=== PATIENT | female | born 1955 | race Caucasian/White ===

== ENCOUNTER → 2016-09-20 | Outpatient (CLI) | payer OTHER ==
[2016-09-20 13:20] LABS: EKG EKG PERFORMED
[2016-09-20 14:11] LABS: Basophils # (A) 0.1 k/uL (0-0.2); Basophils % (A) 1 %; CHCM 31.2; Eosinophils # (A) 0.2 k/uL (0-0.7); Eosinophils % (A) 2 %; HCT 41.1 % (34.0-46.0); HDW 2.55; HGB 13.5 gm/dL (11.4-16.0); Hypochromasia Slight; Luc # (Auto) 0.13; Luc % (Auto) 1; Lymphocytes # (A) 3.6 k/uL (1.0-4.8); Lymphocytes % (A) 32 %; MCH 31.7 pg (25.0-35.0); MCHC 32.8 g/dL (31.0-37.0); MCV 96.6 fL (80.0-100.0); Mean Platelet Volume 7.7; Monocytes # (A) 0.4 k/uL (0-1.0); Monocytes % (A) 4 %; Neutrophils # (A) 6.8 k/uL (1.3-7.7); Neutrophils % (A) 60 %; RBC 4.25 m/uL (3.80-5.40); RDW 12.9 % (11.5-15.5); WBC 11.2 k/uL (3.8-10.6); WBC (Perox) 11.72
[2016-09-20 14:19] LABS: INR 0.9 (<1.1); Partial Thromboplastin Time 22.5 sec (22.0-30.0); Prothrombin Time 9.7 sec (9.0-12.0)
[2016-09-20 14:33] LABS: Appearance,Urine Cloudy (Clear); Bacteria,Urine Moderate /hpf; Bilirubin,Urine Negative (Negative); Glucose,Urine (UA) Negative (Negative); Ketones,Urine Negative (Negative); Leukocyte Esterase,Urine Large (Negative); Mucus,Urine Rare /hpf; Nitrite,Urine Positive (Negative); PH, Urine 5.5 (5.0-8.0); Particle Count 31676; Protein,Urine 1+ (Negative); RBC,Urine 3 /hpf (0-5); Squamous Epithelial Cell,Urine 3 /hpf (0-4); UA Billing (MACRO vs. MICRO) MICRO; Urobilinogen,Urine <2.0 mg/dL (<2.0); WBC,Urine 40 /hpf (0-5)
[2016-09-20 14:53] LABS: ALT 26 U/L (9-52); AST 20 U/L (14-36); Alkaline Phosphatase 103 U/L (38-126); Anion Gap 13 mmol/L; Blood Urea Nitrogen 25 mg/dL (7-17); Carbon Dioxide 26 mmol/L (22-30); Chloride 104 mmol/L (98-107); Glucose 72 mg/dL (74-99); Non-African American GFR(MDRD) >60 (>60 ml/min/1.73 sqM); Potassium 5.1 mmol/L (3.5-5.1); Sodium 143 mmol/L (137-145); Total Bilirubin 0.4 mg/dL (0.2-1.3); Total Protein 7.1 g/dL (6.3-8.2)
== END | disposition home or self-care (01) ==
LOC: LABPAT 12:42
PROVIDERS: ATTEND Orthopaedic Surgery
DX: Z01.810 Encounter for preprocedural cardiovascular examination (principal); Z01.812 Encounter for preprocedural laboratory examination
CPT/HCPCS: 80053; 81001; 85025; 85610; 85730; 87070; 93005

== ENCOUNTER 2016-10-03 10:14 | Inpatient (IN) | payer OTHER ==
[~2016-10-03 10:14] MED LIST: ACETAMINOPHEN TAB 500 MG TAB PO ONE; DEXAMETHASONE SOD PHOSPHATE 10 MG/ML 1 ML VIAL IV ONE; LIDOCAINE 1% 20 ML VIAL (10MG/ML) FOR IV START INTRADERMA PRN; MELOXICAM 7.5 MG TAB PO ONE; MIDAZOLAM 2 MG/2 ML VIAL IV PRN; ONDANSETRON 4 MG/2 ML VIAL IVP ONE; ROPIVACAINE 246.25 MG, EPINEPHrine 0.5 MG, KETOROLAC 30 MG, cloNIDine HCL/PF 80 MCG, WA... MISCELLANE ONE; SCOPOLAMINE 1.5MG/72HR PATCH TRANSDERM ONE; TRANEXAMIC ACID 1,000 MG in SODIUM CHLORIDE 0.9% 100 ML IVPB ONE; ceFAZolin 2 GM in SODIUM CHLORIDE 0.9% 100 ML IVPB ONE
[2016-10-03 14:19] LABS: Glucose,Whole Blood 95 mg/dL (75-99)
[2016-10-03] MEDS: LACTATED RINGERS 1,000 ML IV SCH ×2 (14:32→23:18)
[2016-10-03] MEDS ORDERED: HYDROcodone/APAP 5-325MG 1 EACH TAB PO PRN (16:26)
[2016-10-03] MEDS ORDERED: DIAZEPAM 5 MG TAB PO PRN ×2 (16:26)
[2016-10-03] MEDS ORDERED: MAGNESIUM HYDROXIDE 2,400 MG/10 ML CUP PO PRN (16:26)
[2016-10-03] MEDS ORDERED: NALOXONE 0.4 MG/ML 1 ML VIAL IV PRN (16:26)
[2016-10-03] MEDS ORDERED: ONDANSETRON 4 MG/2 ML VIAL IVP PRN (16:26)
[2016-10-03] MEDS ORDERED: HYDROmorphone 1 MG/ML 1 ML SYRINGE IVP PRN ×3 (16:26)
[2016-10-03] MEDS ORDERED: BISACODYL 10 MG SUPP RECTAL PRN (16:26)
[2016-10-03] MEDS ORDERED: fentaNYL (PF) 50 MCG/ML 2 ML AMP ONE (18:17)
[2016-10-03] MEDS ORDERED: PROPOFOL 10 MG/ML 20 ML VIAL IV ONE (18:17)
[2016-10-03] MEDS ORDERED: SODIUM CHLORIDE 0.9% 100 ML BAG ONE (18:17)
[2016-10-03] MEDS ORDERED: SUCCINYLCHOLINE CHLORIDE 100 MG/5 ML SYR IV ONE (18:17)
[2016-10-03] MEDS ORDERED: MIDAZOLAM 2 MG/2 ML VIAL ONE (18:17)
[2016-10-03] MEDS ORDERED: TRANEXAMIC ACID 1,000 MG/10 ML VIAL ONE (18:17)
[2016-10-03] MEDS ORDERED: HYDROmorphone (PF) 1 MG/ML ONE (18:17)
[2016-10-03] MEDS ORDERED: LIDOCAINE 1% INJ 10MG/ML (20 ML MDV) ONE (18:17)
[2016-10-03] MEDS ORDERED: LACTATED RINGERS 1,000 ML IV ONE ×2 (19:20)
[2016-10-03] MEDS ORDERED: ceFAZolin 3,000 MG in SODIUM CHLORIDE 0.9% IRRIGATIO 3,000 ML IRRIGATION ONE (19:21)
--- NOTE | 2016-10-03 19:45 | P.OP ---
Date of Procedure: 10/03/16 Preoperative Diagnosis: Severe osteoarthritis the left knee Postoperative Diagnosis: Severe osteoarthritis of left knee Procedure(s) Performed: Left total knee arthroplasty Implants: Salazar and Nephew Oxinium femoral component size 4, left Salazar & Nephew Abbi II left nonporous tibial baseplate size 3 Salazar & Nephew size 9 mm Legion XLPE dished articular insert, size 3-4 Salazar & Nephew Abbi II resurfacing patellar component, 32 mm All components were cemented using Esteban bone cement.. The articulation is ceramic on polyethylene. Anesthesia: GETA (Spinal anesthetic was attempted, but unsuccessful) Surgeon: Imer Castillo Coal Hauler #1: Keisha Lyles Pathology: other (Bone and cartilage) Condition: stable Disposition: PACU Indications for Procedure: After failure of conservative treatment we discussed the surgical and nonsurgical treatment options at length. Patient wishes to proceed with a total knee arthroplasty. Complications specific to this procedure were discussed at length, including but not limited to infection, bleeding, stiffness , and nerve injury. Patient is aware of all these complications and informed consent was obtained Operative Findings: The operative findings are consistent with severe osteoarthritis of the left knee Description of Procedure: Patient was seen in the preoperative area consent was reviewed and operative site was marked with a skin marker. Patient was then brought to the operating room and given preoperative antibiotics intravenously. A general anesthetic was administered by the anesthesia department. A Hunter catheter was then placed by the nursing staff. A tourniquet was placed on the upper thigh and the lower extremity was prepped and draped in usual sterile fashion. A gram of transexamic acid was given. A universal timeout was then performed which confirmed the patient's name, surgical site, ALLERGIES, and consent. The lower extremity was then exsanguinated and tourniquet was inflated to 350 mmHg. A standard and anterior midline approach to the knee was performed. The skin and subcutaneous tissue was dissected down to the patellar tendon. A medial parapatellar arthrotomy was then performed. The knee was then extended, the patellar was everted, and the knee was again flexed. Anterior horns of both menisci were excised, and a release was performed to the posterior medial aspect of the knee. On gross visual inspection, there was complete loss of articular cartilage in the medial and patellofemoral joint spaces. There was also significant cartilage damage in the lateral compartment. There were multiple periarticular osteophytes which were then removed with a Ronguer. The femoral canal was then opened with the appropriate drill, and the intramedullary femoral cutting guide was then placed and set for 4 of valgus. The distal femoral cutting block was then pinned in place, and the distal femur was then cut. The cutting block was then removed and the cut was checked for flatness. Next, the sizing guide was then placed and set for 3 external rotation based off of the epicondylar axis and Whitesides line. After the femur was sized, the appropriate 4-in-1 cutting block was then pinned in place. The anterior condyles were cut without notching. The posterior and chamfer cuts were performed while protecting the collateral ligaments. The cutting block was then removed, and the femoral canal was plugged with autologous bone. Attention was then directed to the tibia. The remaining ACL was removed with a Ronguer, and the tibia was then gently subluxed forward with a large bent knee retractor. Any remaining menisci was excised. The posterior lateral corner was cauterized in order to cauterize the lateral geniculate artery. The extra medullary tibial cutting guide was then placed, set for the appropriate rotation , slope, and depth of resection. The proximal tibia cutting guide was then pinned in place. Proximal tibia was then cut and sized. Next trials were then placed with the appropriate-sized insert. The knee was able to fully extend and flex to 130 and was stable throughout all range of motion. The knee was then extended, patella everted. Patella was then measured, and then using an osteotomy guide, the patella was cut at the appropriate level. The patella was then measured and drilled and the patella trial was then placed. The knee was then taken through range of motion with the patella trial and the patella tracked normally. The knee was then extended patella trial was then removed and the patella was everted. Knee was then flexed and lug holes were drilled through the femoral trial and the femoral trial was then removed. The tibial was then exposed, and the tibial broach guide was then pinned in place after it was set for the appropriate rotation to allow for the most coverage without overhang. The tibia was then broached. The cut surfaces of bone were then irrigated with pulsatile lavage. The posterior structures were injected with the ropivacaine solution. The components were then opened, the cement was mixed, and the components were then cemented in place. The cement was allowed to harden with the knee in full extension. While the cement was hardening, the remaining soft tissues were injected with the ropivacaine solution. After the cemented hardened. The tourniquet was released, and hemostasis was obtained. A second gram of transexamic acid was given. The knee was again irrigated. The knee was again taken through range of motion and found to be stable throughout all range of motion of 0-130, and the patella tracked normally. The fascia was then closed with #2 strata fix suture. The subcutaneous tissue was closed with 3-0 Vicryl and 3-0 strata fix. Dermabond tape was used for the skin, and the patient was placed in a sterile dressing. Patient was then transferred to recovery room in stable condition. The assistant manager quality management TYRELL Carter was required due the complexity surgery and the need for a skilled surgical tech. She assisted in positioning, draping , retraction, and closure of the wound.
[2016-10-03 20:23] VITALS: RESP 16
--- NOTE | 2016-10-03 20:25 | XR ---
EXAMINATION TYPE: XR knee limited LT DATE OF EXAM: 10/03/2016 8:22 PM COMPARISON: NONE HISTORY: Postop knee surgery TECHNIQUE: 2 views FINDINGS: There is a left total knee prosthesis. Components are in anatomic position. IMPRESSION: Prosthesis without evidence of a complicating process.
[2016-10-03 20:30] LABS: Glucose,Whole Blood 205 mg/dL (75-99)
[2016-10-03] MEDS: HYDROmorphone 1 MG/ML 1 ML SYRINGE IVP PRN ×2 (20:30→20:40)
[2016-10-03] MEDS: LABETALOL 5 MG/ML VIAL MDV IVP ONE ×2 (20:47→20:57)
[2016-10-03] MEDS ORDERED: METOCLOPRAMIDE 5 MG/ML 2 ML VIAL IVP ONE (20:53)
[2016-10-03] MEDS: SODIUM CHLORIDE 0.9% 1,000 ML IV SCH ×3 (20:57→23:20)
[2016-10-03] MEDS ORDERED: SENNOSIDES-DOCUSATE SODIUM 1 EACH TAB PO SCH (21:00)
[2016-10-03 21:33] VITALS: BMI 49.1
[2016-10-03 21:52] LABS: Glucose,Whole Blood 226 mg/dL (75-99)
[2016-10-03] MEDS ORDERED: INSULIN LISPRO (humaLOG) 300 UNIT/3 ML VIAL SQ ONE (22:38)
[2016-10-03] MEDS: ceFAZolin 2 GM in SODIUM CHLORIDE 0.9% 100 ML IVPB SCH (23:17)
[2016-10-03] MEDS: ASPIRIN 325 MG TAB PO SCH (23:17)
[2016-10-04] MEDS: hydrOXYzine PAMOATE 25 MG CAP PO PRN ×2 (04:43→10:38)
[2016-10-04] MEDS: HYDROcodone/APAP 5-325MG 1 EACH TAB PO PRN ×2 (04:44→10:38)
[2016-10-04] MEDS: ASPIRIN 325 MG TAB PO SCH (07:56)
[2016-10-04] MEDS: glipiZIDE 10 MG TAB PO SCH ×2 (07:56→17:36)
[2016-10-04] MEDS: metFORMIN 500 MG TAB PO SCH ×2 (07:56→17:36)
[2016-10-04] MEDS: ceFAZolin 2 GM in SODIUM CHLORIDE 0.9% 100 ML IVPB SCH (07:57)
[2016-10-04 07:59] LABS: Glucose,Whole Blood 205 mg/dL (75-99)
[2016-10-04] MEDS: INSULIN LISPRO (humaLOG) 300 UNIT/3 ML VIAL SQ SCH ×3 (08:02→17:20)
[2016-10-04 08:44] LABS: Basophils % (A) 0 %; CH 30.5; CHCM 32.2; Eosinophils % (A) 0 %; HCT 34.1 % (34.0-46.0); HDW 2.44; HGB 10.8 gm/dL (11.4-16.0); Luc # (Auto) 0.08; Luc % (Auto) 1; Lymphocytes # (A) 2.2 k/uL (1.0-4.8); Lymphocytes % (A) 18 %; MCH 30.1 pg (25.0-35.0); MCHC 31.6 g/dL (31.0-37.0); MCV 95.2 fL (80.0-100.0); Mean Platelet Volume 7.6; Monocytes # (A) 0.5 k/uL (0-1.0); Monocytes % (A) 4 %; Neutrophils # (A) 9.2 k/uL (1.3-7.7); Neutrophils % (A) 76 %; RBC 3.58 m/uL (3.80-5.40); RDW 13.2 % (11.5-15.5); WBC 12.1 k/uL (3.8-10.6); WBC (Perox) 12.48
[2016-10-04] MEDS ORDERED: OXYBUTYNIN CHLORIDE 5 MG TAB PO SCH (09:00)
[2016-10-04] MEDS ORDERED: MELOXICAM 7.5 MG TAB PO SCH (09:00)
[2016-10-04] MEDS ORDERED: MULTIVITAMINS, THERA 1 EACH TAB PO SCH (09:00)
[2016-10-04] MEDS ORDERED: LISINOPRIL 10 MG TAB PO SCH (09:00)
--- NOTE | 2016-10-04 09:18 | P.DS ---
Providers Date of admission: 10/03/16 13:28 Expected date of discharge: 10/04/16 Attending physician: Imer Castillo Consults: 10/03/16 22:13 Consult Physician Routine Consulting Provider: Mann Briones Consult Reason/Comments: medical management Do you want consulting provider notified?: Yes, Notify in am Primary care physician: Chris Santillan - Discharge Diagnosis(es) (1) Primary osteoarthritis of left knee Current Visit: Yes Status: Acute (2) Status post left knee replacement Current Visit: Yes Status: Acute Hospital Course: This is a pleasant 61-year-old female last seen in our office with complaints of left knee pain. Patient has known history of degenerative arthritis of the left knee and presented to discuss options. After discussion and consideration , the patient elected to proceed with a left total knee arthroplasty. Patient was seen preoperatively, and medically cleared for surgery by her primary care physician. Patient was admitted to [facility] and underwent left total knee arthroplasty with Dr. Imer Castillo. The procedure was performed without complications or sequelae. The patient is seen and evaluated at bedside today. Pain is well-controlled. Patient has no new complaints today and denies any fevers, chills, nausea, vomiting, or shortness of breath. Vital signs are stable. Dressing is clean dry and intact. Incision looks fine with no erythema or active drainage. There is scant amount of bloody drainage on the dressing. She is able to perform active flexion at the knee. Calf is soft and nontender. Patient has full foot and ankle motion without difficulty. Patient' s left lower extremity is neurovascularly intact. The patient is orthopedically stable for discharge today. Pertinent Studies: Laboratory Tests 10/04/16 07:13 WBC 12.1 H RBC 3.58 L Hgb 10.8 L Hct 34.1 MCV 95.2 MCH 30.1 MCHC 31.6 RDW 13.2 Plt Count 267 Neutrophils % 76 Lymphocytes % 18 Monocytes % 4 Eosinophils % 0 Basophils % 0 Neutrophils # 9.2 H Lymphocytes # 2.2 Monocytes # 0.5 Eosinophils # 0.0 Basophils # 0.0 Patient Condition at Discharge: Good Plan - Discharge Summary New Discharge Prescriptions: Aspirin 325 mg PO BID #60 tab Hydrocodone/Acetaminophen [Manito 5-325] 1 - 2 each PO Q6HR PRN #90 tab PRN Reason: Pain Sennosides-Docusate Sodium [Senokot-S] 2 tab PO DAILY #60 tablet Discharge Medication List Aspirin [Adult Low Dose Aspirin EC] 81 mg PO DAILY 09/22/16 [History] Lisinopril [Zestril] 10 mg PO QAM 09/22/16 [History] Multivitamins, Thera [Multivitamin] 1 tab PO DAILY 09/22/16 [History] Oxybutynin Chloride [Ditropan] 5 mg PO BID 09/22/16 [History] glipiZIDE [Glucotrol] 20 mg PO BID 09/22/16 [History] metFORMIN HCL 1,000 mg PO BID 09/22/16 [History] Aspirin 325 mg PO BID #60 tab 10/04/16 [Rx] Hydrocodone/Acetaminophen [Manito 5-325] 1 - 2 each PO Q6HR PRN #90 tab 10/04/16 [Rx] Sennosides-Docusate Sodium [Senokot-S] 2 tab PO DAILY #60 tablet 10/04/16 [Rx] Follow up Appointment(s)/Referral(s): Imer Castillo DO [Doctor of Osteopathic Medicine] - 2 Weeks Ambulatory/Diagnostic Orders: Continuous Passive Motion (CPM) Machine [DME.AMB1] Location: Determined By Patient Activity/Diet/Wound Care/Special Instructions: Weightbearing as tolerated with a walker CPM daily Daily dressing changes, keep incision clean and dry [facility] with questions or concerns [phone] Discharge Disposition: HOME WITH HOME HEALTH SERVICES
[2016-10-04 12:03] LABS: Glucose,Whole Blood 165 mg/dL (75-99)
[2016-10-04 14:58] LABS: Hemoglobin A1C 6.5 % (4.2-6.1)
[2016-10-04 15:22] VITALS: BP 104/52; PULSE 79; TEMP 97.7
[2016-10-04] MEDS ORDERED: HYDROcodone/APAP 7.5-325MG 1 EACH TAB PO PRN (16:07)
[2016-10-04 16:55] LABS: Glucose,Whole Blood 100 mg/dL (75-99)
== END 2016-10-04 19:04 | disposition home health service (06) | DRG 470 ==
LOC: 2ORMAIN 13:28 → 3SUR 20:51
PROVIDERS: ADMIT Orthopaedic Surgery; ATTEND Orthopaedic Surgery
PROC: 0SRD0J9 Replacement of Left Knee Joint with Synthetic Substitute, Cemented, Open Approach (ICD-10-PCS; principal; 2016-10-03 17:25)
DX: M17.12 Unilateral primary osteoarthritis, left knee (principal); I10 Essential (primary) hypertension; E11.9 Type 2 diabetes mellitus without complications; Z79.1 Long term (current) use of non-steroidal anti-inflammatories (NSAID); Z79.84 Long term (current) use of oral hypoglycemic drugs; Z79.899 Other long term (current) drug therapy; Z88.6 Allergy status to analgesic agent
CPT/HCPCS: 83036; 84132; 85025; 88300

== ENCOUNTER → 2024-04-01 | Outpatient (CLI) | payer MEDICARE, OTHER ==
--- NOTE | 2024-04-29 12:50 | US ---
Patient: Mila Saravia Ordering Physician: Unknown, Unknown ID: [id number] Phone, Pager: Phone: N/ A Pager: N/A : 1955 Age/Gender: 68Y, O Primary Location: N/A Procedure: US arterial LE single level Study Date: 04/01/2024 1:47:00 PM EXAMINATION TYPE: US arterial LE single level DATE OF EXAM: 04/20/2024 9:46 PM CLINICAL INDICATION: Nonhealing diabetic wound. History of: Diabetes, hypertension, skin color change. Doppler Waveforms: Right: Monophasic Left: Monophasic Right Brachial Pressure: 165 Left Brachial Pressure: And 74 Ankle-Brachial Indices: Right: Not able to compress. Left: Not able to compress. (Vessel hardening > 1.4; Normal 0.9 - 1.4, Moderate 0.7 - 0.9, Severe 0.5-0.7) Toe Brachial Indices: Right: Not able to compress. Left: Not able to compress. IMPRESSION: Noncompressible vessels. No ankle-brachial indices recorded. Monophasic waveforms suggestive peripher al vascular disease bilaterally.
--- NOTE | 2024-04-29 12:50 | US ---
Patient: Mila Saravia Ordering Physician: Unknown, Unknown ID: [id number] Phone, Pager: Phone: N/ A Pager: N/A : 1955 Age/Gender: 68Y, F Primary Location: N/A Procedure: US venous doppler dup mychal LE BI Study Date: 04/01/2024 1:24:00 PM EXAMINATION TYPE: US venous doppler duplex LE BI DATE OF EXAM: 04/19/2024 3:43 PM COMPARISON: NONE CLINICAL INDICATION: VENOUS INSUFFICIENCY study Nonhealing wound, diabetic SIDE PERFORMED: Bilateral TECHNIQUE: The lower extremity deep venous system is examined utilizing real time linear array sonog can with graded compression, doppler sonography and color-flow sonography. VESSELS IMAGED: Common Femoral Vein Deep Femoral Vein Greater Saphenous Vein * Femoral Vein Popliteal Vein Small Saphenous Vein * Proximal Calf Veins (* superficial vessels) Right Leg: Negative for DVT Left Leg: Negative for DVT No reflux seen bilaterally and appears negative for DVT Grayscale, color doppler, spectral doppler imaging performed of the deep veins of the lower extremiti es. There is normal flow, compressibility, vascular waveforms. IMPRESSION: 1. No evidence for deep vein thrombosis of the bilateral lower externally. 2. No evidence for venous insufficiency.
== END | disposition home or self-care (01) ==
LOC: RADUSWWP 13:06
PROVIDERS: ATTEND Thoracic Surgery (Cardiothoracic Vascular Surgery)
DX: L97.825 Non-pressure chronic ulcer of other part of left lower leg with muscle involvement without evidence of necrosis (principal); I10 Essential (primary) hypertension; E11.9 Type 2 diabetes mellitus without complications
CPT/HCPCS: 93922; 93970

== ENCOUNTER → 2025-01-13 | Outpatient (CLI) | payer MEDICARE ==
--- NOTE | 2025-01-13 16:32 | XR ---
EXAMINATION TYPE: XR foot complete RT DATE OF EXAM: 01/13/2025 CLINICAL INDICATION: Female, 69 years old with history of [id number] CHRONIC ULCER OF R FOOT WITH FAT LAY ER EXPOSED, pain TECHNIQUE: Frontal, lateral, and oblique images of the right foot are obtained. COMPARISON: None FINDINGS: Osseous structures are demineralized. There is moderate size inferior calcaneal spur. Flexi on within the toes is seen which limits evaluation at this level. Moderate spurring midfoot level is present. No suspicious bony destruction to suggest acute osteomyelitis. IMPRESSION: As above. If clinical suspicion persists further investigation with 3 phase bone scan and /or MRI may be warranted. [facility], , 01/13/2025 4:29 PM
== END | disposition home or self-care (01) ==
LOC: RADXRMAIN 16:06
PROVIDERS: ATTEND Thoracic Surgery (Cardiothoracic Vascular Surgery)
DX: L97.512 Non-pressure chronic ulcer of other part of right foot with fat layer exposed (principal); L97.825 Non-pressure chronic ulcer of other part of left lower leg with muscle involvement without evidence of necrosis; L97.812 Non-pressure chronic ulcer of other part of right lower leg with fat layer exposed; E11.622 Type 2 diabetes mellitus with other skin ulcer; I87.2 Venous insufficiency (chronic) (peripheral); M77.31 Calcaneal spur, right foot